=== PATIENT | male | born 1965 | race Hispanic/Latino ===

== ENCOUNTER 2018-07-22 19:36 | Emergency (ER) | payer OTHER ==
--- NOTE | 2018-07-22 20:16 | ER ---
Nurse's Notes [facility] Name: aDrrin Lazo Age: 53 yrs Sex: Male : 1965 Arrival Date: 07/22/2018 Time: 19:39 Bed 30 Private MD: Diagnosis: Abrasion of ear-left ear canal Presentation: 07/22 19:45 Presenting complaint: Child states: "Earlier he cleaned his ear around 3:00, and then aj1 around 6 it started bleeding, he asked me to check his ear and when I shined my phone flash light it looked like a clot in there". Transition of care: patient was not received from another setting of care. Onset of symptoms was July 22, 2018 at 15:00. Risk Assessment: Do you want to hurt yourself or someone else? Patient reports no desire to harm self or others. Initial Sepsis Screen: Does the patient meet any 2 criteria? No. Patient's initial sepsis screen is negative. Does the patient have a suspected source of infection? No. Patient's initial sepsis screen is negative. Care prior to arrival: None. 19:45 Method Of Arrival: Ambulatory aj1 19:45 Acuity: BETTY 4 aj1 Triage Assessment: 19:47 General: Appears in no apparent distress. comfortable, Behavior is calm, cooperative, aj1 appropriate for age. Pain: Denies pain. EENT: Reports bleeding from his left ear. Neuro: Level of Consciousness is awake, alert, obeys commands. Cardiovascular: Patient's skin is warm and dry. Respiratory: Airway is patent Respiratory effort is even, unlabored, Respiratory pattern is. Historical: - Allergies: 19:47 Vancomycin; aj1 - PMHx: 19:47 Hypertension; Hyperlipidemia; aj1 - PSHx: 19:47 kidney transplant; Hernia repair; aj1 - Immunization history:: Flu vaccine is not up to date. - Social history:: Smoking status: Patient/guardian denies using tobacco. - Ebola Screening: : Patient denies travel to an Ebola-affected area in the 21 days before illness onset. Screenin:00 Abuse screen: Denies threats or abuse. Denies injuries from another. Nutritional kr2 screening: No deficits noted. Tuberculosis screening: No symptoms or risk factors identified. Fall Risk None identified. Assessment: 20:00 General: Appears in no apparent distress. comfortable, well groomed, well developed, kr2 Behavior is calm, cooperative, appropriate for age. Pain: Denies pain. Neuro: Level of Consciousness is awake, alert, obeys commands, Oriented to person, place, time, situation, Appropriate for age. Cardiovascular: Capillary refill < 3 seconds in bilateral fingers Patient's skin is warm and dry. Respiratory: Airway is patent Respiratory effort is even, unlabored, Respiratory pattern is regular, symmetrical. GI: Abdomen is round non-distended. EENT: Ear canal dried blood to left ear canal. Derm: Skin is healthy with good turgor, Skin is pink, warm \\T\\ dry. Musculoskeletal: Circulation, motion, and sensation intact. Injury Description: Abrasion sustained to left ear canal is dried blood to ear canal. Vital Signs: 19:47 BP 163 / 90; Pulse 75; Resp 18; Temp 97.7; Pulse Ox 95% on R/A; Weight 97.52 kg (R); aj1 Height 5 ft. 7 in. (170.18 cm) (R); Pain 0/10; 19:47 Body Mass Index 33.67 (97.52 kg, 170.18 cm) aj1 ED Course: 19:39 Patient arrived in ED. al2 19:46 Triage completed. aj1 19:47 Arm band placed on Patient placed in waiting room, Patient notified of wait time. aj1 19:52 [facility]ef[facility] Herbert [facility]C [facility]. kb 19:52 Ottoniel Schroeder MD is Attending Physician. kb 20:00 Patient has correct armband on for positive identification. Bed in low position. Call kr2 light in reach. Side rails up X 1. Adult w/ patient. Pulse ox on. NIBP on. Door closed. Head of bed elevated. 20:29 No provider procedures requiring assistance completed. Patient did not have IV access kr2 during this emergency room visit. Administered Medications: No medications were administered Outcome: 20:16 Discharge ordered by . kb 20:29 Discharged to home ambulatory, with family. kr2 20:29 Condition: good 20:29 Discharge instructions given to patient, family, Instructed on discharge instructions, follow up and referral plans. ear care Demonstrated understanding of instructions, follow-up care, ear care 20:29 Patient left the ED. kr2 Signatures: Estefania Herbert FNP-C FNP-Summer Flowers RN RN aj1 Izabella Duke, RN RN kr2 Dawna Moe
--- NOTE | 2018-07-22 20:16 | EDPHYS ---
Physician Documentation [facility] Name: Darrin Lazo Age: 53 yrs Sex: Male : 1965 Arrival Date: 07/22/2018 Time: 19:39 Bed 30 Private MD: ED Physician Ottoniel Schroeder HPI: 07/22 20:13 This 53 yrs old Male presents to ER via Ambulatory with complaints of Ear kb Injury. 20:13 The patient presents with drainage, that is bloody. The complaints affect the left ear. kb Onset: The symptoms/episode began/occurred today. Modifying factors: The symptoms are alleviated by nothing, the symptoms are aggravated by nothing. Associated signs and symptoms: The patient has no apparent associated signs or symptoms. Severity of symptoms: At their worst the symptoms were mild in the emergency department the symptoms are unchanged. The patient has not experienced similar symptoms in the past. The patient has not recently seen a physician. Pt reports he cleaned his ears earlier today and the left one started bleeding a while later. Daughter checked his ear tonight and noticed a blood clot so they came to get it checked out. Denies pain, decreased hearing. . Historical: - Allergies: 19:47 Vancomycin; aj1 - PMHx: 19:47 Hypertension; Hyperlipidemia; aj1 - PSHx: 19:47 kidney transplant; Hernia repair; aj1 - Immunization history:: Flu vaccine is not up to date. - Social history:: Smoking status: Patient/guardian denies using tobacco. - Ebola Screening: : Patient denies travel to an Ebola-affected area in the 21 days before illness onset. ROS: 20:12 Constitutional: Negative for fever, chills, and weight loss, Cardiovascular: Negative kb for chest pain, palpitations, and edema, Respiratory: Negative for shortness of breath, cough, wheezing, and pleuritic chest pain, Abdomen/GI: Negative for abdominal pain, nausea, vomiting, diarrhea, and constipation, Back: Negative for injury and pain, MS/Extremity: Negative for injury and deformity, Skin: Negative for injury, rash, and discoloration, Neuro: Negative for headache, weakness, numbness, tingling, and seizure. 20:12 ENT: Positive for drainage from ear(s). Exam: 20:12 Constitutional: This is a well developed, well nourished patient who is awake, alert, kb and in no acute distress. Head/Face: Normocephalic, atraumatic. Neck: Trachea midline, no thyromegaly or masses palpated, and no cervical lymphadenopathy. Supple, full range of motion without nuchal rigidity, or vertebral point tenderness. No Meningismus. Chest/axilla: Normal chest wall appearance and motion. Nontender with no deformity. No lesions are appreciated. Cardiovascular: Regular rate and rhythm with a normal S1 and S2. No gallops, murmurs, or rubs. Normal PMI, no JVD. No pulse deficits. Respiratory: Lungs have equal breath sounds bilaterally, clear to auscultation and percussion. No rales, rhonchi or wheezes noted. No increased work of breathing, no retractions or nasal flaring. Abdomen/GI: Soft, non-tender, with normal bowel sounds. No distension or tympany. No guarding or rebound. No evidence of tenderness throughout. Skin: Warm, dry with normal turgor. Normal color with no rashes, no lesions, and no evidence of cellulitis. MS/ Extremity: Pulses equal, no cyanosis. Neurovascular intact. Full, normal range of motion. Neuro: Awake and alert, GCS 15, oriented to person, place, time, and situation. Cranial nerves II-XII grossly intact. Motor strength 5/5 in all extremities. Sensory grossly intact. Cerebellar exam normal. Normal gait. 20:12 ENT: External ear(s): are unremarkable, Ear canal(s): bleeding, clotted blood, that is minimal, in the left canal, TM's: are normal. Vital Signs: 19:47 BP 163 / 90; Pulse 75; Resp 18; Temp 97.7; Pulse Ox 95% on R/A; Weight 97.52 kg (R); aj1 Height 5 ft. 7 in. (170.18 cm) (R); Pain 0/10; 19:47 Body Mass Index 33.67 (97.52 kg, 170.18 cm) aj1 MDM: 19:52 Patient medically screened. kb 20:12 Data reviewed: vital signs, nurses notes. Data interpreted: Pulse oximetry: on room air kb is 95 %. Interpretation: normal. Counseling: I had a detailed discussion with the patient and/or guardian regarding: the historical points, exam findings, and any diagnostic results supporting the discharge/admit diagnosis, the need for outpatient follow up, an ENT specialist, to return to the emergency department if symptoms worsen or persist or if there are any questions or concerns that arise at home. Administered Medications: No medications were administered Disposition: 07/23 17:02 Co-signature as Attending Physician, Ottoniel Schroeder MD I agree with the assessment and wa plan of care. Disposition: 07/22/18 20:16 Discharged to Home. Impression: Abrasion of ear - left ear canal. - Condition is Stable. - Discharge Instructions: Abrasion, [id number]. - Medication Reconciliation Form, Thank You Letter, Antibiotic Education, Prescription Opioid Use form. - Follow up: Emergency Department; When: As needed; Reason: Worsening of condition. Follow up: Private Physician; When: 2 - 3 days; Reason: Recheck today's complaints, Continuance of care, Re-evaluation by your physician. Signatures: Estefania Herbert, PAMELA-C PAMELA-Summer Flowers RN RN aj1 Ottoniel Schroeder MD MD wa Reaves, Karey, RN RN kr2 Corrections: (The following items were deleted from the chart) 07/22 20:29 20:16 07/22/2018 20:16 Discharged to Home. Impression: Abrasion of ear - left ear kr2 canal. Condition is Stable. Forms are Medication Reconciliation Form, Thank You Letter, Antibiotic Education, Prescription Opioid Use. Follow up: Emergency Department; When: As needed; Reason: Worsening of condition. Follow up: Private Physician; When: 2 - 3 days; Reason: Recheck today's complaints, Continuance of care, Re-evaluation by your physician. kb
[2018-07-22 21:05] VITALS: BP 163/90; TEMP 97.7; O2SAT 95
== END 2018-07-22 20:29 | disposition home or self-care (01) ==
LOC: ER 19:36
DX: S00.412A Abrasion of left ear, initial encounter (principal); I10 Essential (primary) hypertension; Z88.3 Allergy status to other anti-infective agents
CPT/HCPCS: 99283